=== PATIENT | female | born 1975 | race Caucasian/White ===

== ENCOUNTER → 2016-11-16 | Outpatient (CLI) | payer OTHER ==
--- NOTE | 2016-11-16 14:02 | XR ---
EXAMINATION TYPE: XR spine complete AP and Lat DATE OF EXAM: 11/16/2016 1:53 PM COMPARISON: MRI entire spine July 14, 2015 HISTORY: Neck and back pain TECHNIQUE: Frontal and lateral views of the cervical, thoracic, and lumbar spine are acquired. Additi onal swimmer's view cervical thoracic junction and open mouth view C1-C2 articulation are acquired. FINDINGS: Some loss of normal cervical curvature is present. There is moderate disc space narrowing a nd spurring at C6-C7 level redemonstrated. Prevertebral soft tissue appears within normal limits. C1- C2 articulation is within normal limits on the open mouth view. No acute fracture or dislocation is n oted. Thoracic spine shows satisfactory alignment without evidence of acute fracture or dislocation. Verteb ral body heights and disc space heights are maintained. Visualized ribs are intact. There is asymmetric prominence of left T12 rib versus right T12 rib. 5 lumbar type vertebra identifie d. Lumbar spine shows satisfactory alignment without acute fracture or dislocation. Vertebral body he ights and disc space heights are maintained. Overlying soft tissue shows mildly prominent gas-filled stomach. IMPRESSION: Some loss of normal cervical curvature on current study with moderate degenerative change C6-C7 level redemonstrated, this correlates with level of disc herniation on prior MRI. Thoracic and lumbar spine are grossly felt to remain within normal limits.
== END | disposition home or self-care (01) ==
LOC: RADXRMAIN 13:34
PROVIDERS: ATTEND Internal Medicine
DX: M47.812 Spondylosis without myelopathy or radiculopathy, cervical region (principal)
CPT/HCPCS: 72082

== ENCOUNTER 2016-11-29 20:07 | Emergency (ER) | payer OTHER ==
[2016-11-29 21:08] VITALS: RESP 20
[2016-11-29] MEDS: LORazepam 1 MG TAB PO STA ×2 (21:16→21:24)
--- NOTE | 2016-11-29 21:36 | ED ---
General Adult HPI - General Chief complaint: Shortness of Breath Stated complaint: ALIYA Time Seen by Provider: 11/29/16 20:40 Source: patient, RN notes reviewed Mode of arrival: ambulatory Limitations: no limitations - History of Present Illness Initial comments: This is a 41-year-old female presents to the emergency department complaining of shortness of breath per patient states it started about 1:00 when she was at work. Patient is a hairdresser at work and there is no new chemicals that she was using today. Patient states became short of breath and is continued to be short of breath the last 7 hours. Patient denies any chest pain patient denies any fever chills or cough. Patient states she has asthma and she tried an inhaler earlier and it didn't help very much at all. Patient denies any abdominal pain patient denies nausea vomiting or diarrhea. Patient denies any back pain. Patient denies any headache patient denies numbness weakness. - Related Data Home Medications Medication Instructions Recorded Confirmed Omeprazole [PriLOSEC] 20 mg PO DAILY 08/03/15 11/29/16 metFORMIN HCL [Glucophage] 500 mg PO BID 08/03/15 11/29/16 Albuterol Inhaler [Ventolin Hfa 2 puff INHALATION RT-QID PRN 11/29/16 11/29/16 Inhaler] Lisinopril [Zestril] 2.5 mg PO DAILY 11/29/16 11/29/16 Allergies Allergy/AdvReac Type Severity Reaction Status Date / Time clindamycin Allergy Rash/Hives Verified 11/29/16 20:48 Penicillins Allergy Unknown Verified 11/29/16 20:48 Review of Systems ROS Statement: Those systems with pertinent positive or pertinent negative responses have been documented in the HPI. ROS Other: All systems not noted in ROS Statement are negative. Past Medical History Past Medical History: Chest Pain / Angina, Diabetes Mellitus, Hypertension History of Any Multi-Drug Resistant Organisms: None Reported Past Surgical History: No Surgical Hx Reported Past Psychological History: Anxiety Smoking Status: Current every day smoker Past Alcohol Use History: Occasional Past Drug Use History: None Reported General Exam - General Exam Comments Initial Comments: GENERAL: Patient is well-developed and well-nourished. Patient is nontoxic and well- hydrated and is in no acute distress. ENT: Neck is soft and supple. No significant lymphadenopathy is noted. Oropharynx is clear. Moist mucous membranes. Neck has full range of motion without eliciting any pain. EYES: The sclera were anicteric and conjunctiva were pink and moist. Extraocular movements were intact and pupils were equal round and reactive to light. Eyelids were unremarkable. PULMONARY: Unlabored respirations. Good breath sounds bilaterally. No audible rales rhonchi or wheezing was noted. CARDIOVASCULAR: There is a regular rate and rhythm without any murmurs gallops or rubs. Patient 's heart rate is at 80 beats a minute ABDOMEN: Soft and nontender with normal bowel sounds. No palpable organomegaly was noted. There is no palpable pulsatile mass. SKIN: Skin is clear with no lesions or rashes and otherwise unremarkable. NEUROLOGIC: Patient is alert and oriented x3. Cranial nerves II through XII are grossly intact. Motor and sensory are also intact. Normal speech, volume and content. Symmetrical smile. MUSCULOSKELETAL: Normal extremities with adequate strength and full range of motion. No lower extremity swelling or edema. No calf tenderness. LYMPHATICS: No significant lymphadenopathy is noted PSYCHIATRIC: Normal psychiatric evaluation. Normal interpersonal interactions appears functionally intact in deals appropriately with others. No signs of depression. Patient appears mildly anxious. Limitations: no limitations Course Vital Signs 11/29/16 11/29/16 11/29/16 20:40 20:50 22:03 Temperature 97.1 F L 97.1 F L 98.1 F Pulse Rate 74 76 59 L Respiratory 18 20 20 Rate Blood Pressure 142/87 133/83 O2 Sat by Pulse 100 100 99 Oximetry Medical Decision Making - Medical Decision Making EKG shows sinus bradycardia 57 bpm MS interval 142 QRS is 74 QT interval 414 QTC is 402 per patient's EKG shows no ST segment elevation or depression or T- wave abdomen is noted. Chest x-ray showed no acute normalities. D-dimer was in the normal range. I went back and reevaluate the patient patient stated all of her symptoms have resolved. - Lab Data Lab Results 11/29/16 Range/Units 21:03 D-Dimer 0.47 (<0.60) mg/L FEU Disposition Clinical Impression: Anxiety Disposition: HOME SELF-CARE Condition: Good Instructions: Anxiety (ED) Time of Disposition: 22:23
--- NOTE | 2016-11-29 21:47 | XR ---
EXAMINATION TYPE: XR chest 2V DATE OF EXAM: 11/29/2016 9:27 PM COMPARISON: 03/28/2014 HISTORY: Difficulty breathing and cough TECHNIQUE: Frontal and lateral views of the chest are obtained. FINDINGS: Heart and mediastinum are normal. Lungs are clear. Diaphragm is normal. Bony thorax and so ft tissues appear normal. IMPRESSION: Normal chest. No change.
[2016-11-29 22:05] VITALS: BP 133/83; PULSE 59; TEMP 98.1
[2016-11-29] MEDS ORDERED: ACET/COD 300 MG/30 MG STARTER PACK 6 TAB BTL PO STA (22:26)
[2016-11-29] MEDS ORDERED: Acetaminophen-Codeine 300-30mg TAB PO STA (22:26)
[2016-11-29] MEDS ORDERED: LORazepam 1 MG TAB PO STA (22:26)
== END 2016-11-29 22:41 | disposition home or self-care (01) ==
LOC: EC 20:07
DX: F41.9 Anxiety disorder, unspecified (principal); R06.02 Shortness of breath; E11.9 Type 2 diabetes mellitus without complications; I10 Essential (primary) hypertension; F17.200 Nicotine dependence, unspecified, uncomplicated; Z79.82 Long term (current) use of aspirin; Z79.899 Other long term (current) drug therapy; Z88.0 Allergy status to penicillin; Z88.1 Allergy status to other antibiotic agents
CPT/HCPCS: 36415; 71020; 85379; 93005; 99285

== ENCOUNTER → 2017-02-23 | Outpatient (CLI) | payer OTHER ==
[2017-02-23 11:27] LABS: Basophils # (A) 0.1 k/uL (0-0.2); Basophils % (A) 1 %; CH 32.7; CHCM 34.4; Eosinophils # (A) 0.1 k/uL (0-0.7); Eosinophils % (A) 2 %; HCT 41.9 % (34.0-46.0); HDW 2.84; HGB 14.2 gm/dL (11.4-16.0); Luc # (Auto) 0.11; Luc % (Auto) 2; Lymphocytes # (A) 1.7 k/uL (1.0-4.8); Lymphocytes % (A) 28 %; MCH 32.6 pg (25.0-35.0); MCV 95.7 fL (80.0-100.0); Mean Platelet Volume 6.9; Monocytes # (A) 0.4 k/uL (0-1.0); Monocytes % (A) 7 %; Neutrophils # (A) 3.6 k/uL (1.3-7.7); Neutrophils % (A) 60 %; RBC 4.38 m/uL (3.80-5.40); RDW 12.9 % (11.5-15.5); WBC (Perox) 6.12
[2017-02-23 11:35] LABS: ALT 32 U/L (9-52); AST 20 U/L (14-36); Alkaline Phosphatase 52 U/L (38-126); Anion Gap 13 mmol/L; Blood Urea Nitrogen 9 mg/dL (7-17); Calcium 9.4 mg/dL (8.4-10.2); Carbon Dioxide 23 mmol/L (22-30); Chloride 107 mmol/L (98-107); Cholesterol 148 mg/dL (<200); Glucose 101 mg/dL (74-99); HDL Cholesterol 57 mg/dL (40-60); Non-African American GFR(MDRD) >60 (>60 ml/min/1.73 sqM); Sodium 143 mmol/L (137-145); Total Bilirubin 0.6 mg/dL (0.2-1.3); Total Protein 7.2 g/dL (6.3-8.2); Triglycerides 64 mg/dL (<150)
[2017-02-23 13:26] LABS: Hemoglobin A1C 5.4 % (4.2-6.1)
== END | disposition home or self-care (01) ==
LOC: LABWHC1 10:33
PROVIDERS: ATTEND Family Medicine
DX: E11.65 Type 2 diabetes mellitus with hyperglycemia (principal); I10 Essential (primary) hypertension
CPT/HCPCS: 36415; 80053; 80061; 83036; 84443; 85025

== ENCOUNTER → 2017-04-21 | Outpatient (CLI) | payer OTHER ==
--- NOTE | 2017-04-21 19:04 | MR ---
EXAMINATION TYPE: MR thoracic spine wo con DATE OF EXAM: 04/21/2017 COMPARISON: 07/14/2015 HISTORY: Severe Back Pain x1 year Standard multiplanar, multisequence MRI departmental protocol Multiplanar, multisequence images of the thoracic spine were acquired. Diffusion weighted imaging was performed. FINDINGS: Alignment anatomic. Vertebral body height and disc interspace maintained. Signal maintained . No abnormal signal seen within the visualized spinal cord. Visualized neural foramina maintained. There is no evidence of disc herniation or canal stenosis at any of the visualized levels. Within the cervical spine the lower cervical region is included which demonstrates a central left par acentral disc herniation C6-C7 which results in mass effect and mild compression of anterior margin o f the cervical spinal cord. Disc herniation C5-C6 also suspected but not entirely included. IMPRESSION: 1. Normal MRI thoracic spine. 2. Central disc herniation or protrusion C6-C7 with mass effect upon the spinal cord. Disc herniation C5-C6 also suspected but not entirely included within the [id number].
== END | disposition home or self-care (01) ==
LOC: RADMRIMAIN 17:58
PROVIDERS: ATTEND Family Medicine
DX: M54.6 Pain in thoracic spine (principal)
CPT/HCPCS: 72146

== ENCOUNTER → 2017-04-24 | Outpatient (CLI) | payer OTHER ==
[2017-04-24 11:34] LABS: Blood Urea Nitrogen 12 mg/dL (7-17); Non-African American GFR(MDRD) >60 (>60 ml/min/1.73 sqM)
--- NOTE | 2017-04-24 13:05 | CT ---
EXAMINATION TYPE: CT abdomen pelvis w con DATE OF EXAM: 04/24/2017 HISTORY: Umbilical pain into back per patient. Abdominal pain not further specified per order CT DLP: 602.9mGycm Automated Exposure Control for Dose Reduction was Utilized. CONTRAST: CT scan of the abdomen and pelvis is performed with IV Contrast, patient injected with 100 mL of Omni paque 300. COMPARISON: CT abdomen pelvis August 03, 2015 FINDINGS: LUNG BASES: No significant abnormality is appreciated. LIVER/GB: No significant abnormality is appreciated. PANCREAS: No significant abnormality is seen. SPLEEN: No significant abnormality is seen. ADRENALS: No significant abnormality is seen. KIDNEYS: No significant abnormality is seen. BOWEL: The oral contrast reaches level of the hepatic flexure. There is no suspicious small or large bowel dilatation seen. Normal appearing appendix is seen from cecum. The amount of fecal material is mildly prominent in the transverse and left colon. UTERUS/ADNEXA: Uterus is heterogeneous appearance, anteverted in shape, and within normal limits in s ize. Both ovaries are seen in the adnexa near axial image 71. In left adnexa there is 1.6 cm rim hype rdense lesion felt to reflect corpus luteal cyst from recent lobulation. There is small to moderate a mount of free fluid in pelvic cul-de-sac, nonspecific finding. LYMPH NODES: No greater than 1cm abdominal or pelvic lymph nodes are appreciated. OSSEOUS STRUCTURES: No significant abnormality is seen. OTHER: There is mild to minimal atherosclerotic change within distal abdominal aorta. IMPRESSION: No bowel obstruction is seen. There is perhaps mild colonic fecal stasis. There is small to moderate amount of free fluid in pelvic cul-de-sac, nonspecific finding. Otherwise no suspicious f inding is seen to account for patient's symptoms.
== END | disposition home or self-care (01) ==
LOC: RADCTMAIN 10:55
PROVIDERS: ATTEND Family Medicine
DX: R10.9 Unspecified abdominal pain (principal)
CPT/HCPCS: 82565; 84520; 74177; 36415; Q9967

== ENCOUNTER → 2017-07-19 | Outpatient (CLI) | payer OTHER ==
--- NOTE | 2017-07-19 10:38 | MR ---
EXAMINATION TYPE: MR cspine/lspine wo con DATE OF EXAM: 07/19/2017 COMPARISON: MRI cervical and lumbar spine July 14, 2015 HISTORY: Neck and low back pain per order. Patient complains of headache and neck pain for 2 to 3 yea rs with pain going into both arms and fingers. Patient complains of low back pain for one to 2 years. TECHNIQUE: Multiplanar, multisequence imaging of the cervical and lumbar spine are performed without IV contrast. FINDINGS: C-SPINE: FINDINGS: Sagittal images of the cervical spine show the craniocervical junction to appear within nor mal limits. The cervical and upper thoracic spinal cord is normal in course and signal. Vertebral a lignment is straightened. There is persistent moderate disc space narrowing C6-C7 level. The vertebra l body and intravertebral disk heights otherwise are normal. Posterior disc herniation C5-C6 and C6- C7 level are redemonstrated on sagittal images. There is heterogeneous diminished T1 and increased T2 signal centered at C6-C7 endplate consistent with Modic type I degenerative change. No significant s purring is seen. Axial images show the C2-C3, C3-C4, C4-C5 levels all to remain within normal limits. Axial images at C5-C6 level show broad-based right paracentral disc protrusion effacing anterior thec al sac up to ventral surface of spinal cord on axial image 23, there is mild asymmetric right-sided n eural foraminal narrowing now present. Left-sided neural foramen is patent. Some progression in findi ngs is felt present versus prior study. Axial images at C6-C7 level show broad-based left paracentral disc protrusion effacing anterolateral thecal sac up to ventral surface of spinal cord and causing moderate to severe left and mild right-si ded neural foraminal narrowing. No significant change from prior study is seen. Axial images at C7-T1 level are felt within normal limits. IMPRESSION: Straightening of cervical spine with degenerative changes C5-C6 and C6-C7 level redemonst rated as detailed above. Some progression in findings C5-C6 level noted. L-SPINE: Sagittal images of the lumbar spine show vertebral body heights and alignment to appear satisfactory. The intervertebral discs demonstrate normal heights and hydration. The conus medullaris is normal i n position and signal ending superior L1 level. The bone marrow signal intensity is within normal li mits. Axial images show mild facet degenerative changes L4-L5 and L5-S1 level. No significant change from p rior study. There is no spinal canal stenosis, neural foraminal narrowing, or evidence of nerve root compromise. IMPRESSION: Mild facet arthropathy lower lumbar spine otherwise unremarkable study
== END | disposition home or self-care (01) ==
LOC: RADMRIMAIN 09:02
PROVIDERS: ATTEND Psychiatry & Neurology Pain Medicine
DX: M47.812 Spondylosis without myelopathy or radiculopathy, cervical region (principal); M46.96 Unspecified inflammatory spondylopathy, lumbar region; Z88.0 Allergy status to penicillin
CPT/HCPCS: 72141; 72148

== ENCOUNTER → 2017-09-06 | Outpatient (CLI) | payer OTHER ==
[2017-09-06 11:57] LABS: ALT 26 U/L (9-52); AST 19 U/L (14-36); Alkaline Phosphatase 51 U/L (38-126); Anion Gap 9 mmol/L; Blood Urea Nitrogen 9 mg/dL (7-17); Calcium 9.8 mg/dL (8.4-10.2); Carbon Dioxide 24 mmol/L (22-30); Chloride 108 mmol/L (98-107); Cholesterol 179 mg/dL (<200); Glucose 97 mg/dL (74-99); HDL Cholesterol 48 mg/dL (40-60); Non-African American GFR(MDRD) >60 (>60 ml/min/1.73 sqM); Potassium 4.3 mmol/L (3.5-5.1); Sodium 141 mmol/L (137-145); Total Bilirubin 0.4 mg/dL (0.2-1.3); Total Protein 7.7 g/dL (6.3-8.2)
== END | disposition home or self-care (01) ==
LOC: LABWHC1 10:40
PROVIDERS: ATTEND Family Medicine
DX: E11.65 Type 2 diabetes mellitus with hyperglycemia (principal)
CPT/HCPCS: 36415; 80053; 80061; 83036

== ENCOUNTER → 2018-03-14 | Outpatient (CLI) | payer OTHER ==
[2018-03-14 10:11] LABS: Basophils % (A) 0 %; Eosinophils # (A) 0.2 k/uL (0-0.7); Eosinophils % (A) 2 %; HCT 41.3 % (34.0-46.0); HGB 14.5 gm/dL (11.4-16.0); Lymphocytes # (A) 1.9 k/uL (1.0-4.8); Lymphocytes % (A) 30 %; MCH 32.5 pg (25.0-35.0); MCHC 35.1 g/dL (31.0-37.0); MCV 92.5 fL (80.0-100.0); Mean Platelet Volume 6.9; Monocytes # (A) 0.5 k/uL (0-1.0); Monocytes % (A) 7 %; Neutrophils # (A) 3.7 k/uL (1.3-7.7); Neutrophils % (A) 58 %; Platelet Count 265 k/uL (150-450); RBC 4.47 m/uL (3.80-5.40); RDW 12.8 % (11.5-15.5); WBC 6.3 k/uL (3.8-10.6)
[2018-03-14 10:38] LABS: ALT 30 U/L (9-52); AST 19 U/L (14-36); Albumin 4.7 g/dL (3.5-5.0); Alkaline Phosphatase 64 U/L (38-126); Anion Gap 16 mmol/L; Blood Urea Nitrogen 11 mg/dL (7-17); Calcium 9.4 mg/dL (8.4-10.2); Carbon Dioxide 23 mmol/L (22-30); Chloride 104 mmol/L (98-107); Cholesterol 192 mg/dL (<200); Glucose 174 mg/dL (74-99); HDL Cholesterol 50 mg/dL (40-60); LDL Cholesterol,Calculated 124 mg/dL (0-99); Potassium 4.1 mmol/L (3.5-5.1); Sodium 143 mmol/L (137-145); Total Bilirubin 0.6 mg/dL (0.2-1.3); Total Protein 7.4 g/dL (6.3-8.2); Triglycerides 88 mg/dL (<150)
[2018-03-14 17:34] LABS: Hemoglobin A1C 6.8 % (4.0-6.0)
== END | disposition home or self-care (01) ==
LOC: LABWHC1 09:23
PROVIDERS: ATTEND Family Medicine
DX: E11.65 Type 2 diabetes mellitus with hyperglycemia (principal); E78.2 Mixed hyperlipidemia
CPT/HCPCS: 36415; 80053; 80061; 82306; 83036; 84443; 85025

== ENCOUNTER → 2018-05-14 | Outpatient (CLI) | payer OTHER ==
--- NOTE | 2018-05-14 10:28 | MR ---
MRI CERVICAL SPINE: CLINICAL HISTORY: Cervicalgia per order. Headache with neck pain for 2 to 3 years causing pain or wea kness into both arms and fingers per patient. TECHNIQUE: Multiplanar, multisequence imaging of the cervical spine is performed without IV contrast. COMPARISON: MRI cervical spine July 19, 2017. FINDINGS: Sagittal images of the cervical spine show the craniocervical junction to remain within nor mal limits. The cervical and upper thoracic spinal cord is normal in course, caliber, and signal. Th ere is persistent grade 1 retrolisthesis of C5 on C6 and C6 on C7 with straightening of cervical spin e. The vertebral body and heights remain normal. Moderate to advanced disc space narrowing C6-C7 lev el with heterogeneous Modic type I degenerative change is redemonstrated. Posterior disc herniation C 5-C6 and C6-C7 level are more prominent versus most recent MRI. Axial images show the C2-C3, C3-C4, and C4-C5 levels all to remain within normal limits. Axial images at C5-C6 level show more prominent broad-based left paracentral disc protrusion on curre nt study effacing anterolateral thecal sac up to ventral surface of spinal cord which is flattened on image 20, there is stable mild right-sided neural foraminal narrowing due to uncovertebral facet art hropathy. Left-sided neural foramen is patent. Axial images at C6-C7 level show broad-based left paracentral disc protrusion effacing anterolateral thecal sac up to ventral surface of spinal cord and causing moderate to severe left and mild to moder ate right-sided neural foraminal narrowing. No significant change from prior. Axial images at C7-T1 level are felt to remain within normal limits. IMPRESSION: Loss of normal cervical curvature with fairly advanced degenerative changes C5-C6 and C6- C7 level redemonstrated. Progression in findings from most recent MRI C5-C6 level noted. Advise neuro surgical consultation due to fairly prominent spinal canal effacement and/or stenosis increasing in s everity.
== END | disposition home or self-care (01) ==
LOC: RADMRIMAIN 09:03
PROVIDERS: ATTEND Psychiatry & Neurology Pain Medicine
DX: M43.8X2 Other specified deforming dorsopathies, cervical region (principal); M47.812 Spondylosis without myelopathy or radiculopathy, cervical region; Z88.0 Allergy status to penicillin
CPT/HCPCS: 72141

== ENCOUNTER → 2018-08-27 | Outpatient (CLI) | payer OTHER ==
--- NOTE | 2018-08-27 09:24 | CT ---
EXAMINATION TYPE: CT cervical spine wo con DATE OF EXAM: 08/27/2018 COMPARISON: None HISTORY: pre surgical/neck pain arm numbness x [address] DLP: [address] of the cervical spine was performed with bone and soft tissue window settings submitted . Coronal and sagittal reconstruction is obtained. C2-3: Within normal limits. C3-4: Within normal limits C4-5: Within normal limits C5-6: Moderate degenerative disc disease. Circumferential disc bulge with mild effacement ventral the osmel sac. No evidence for disc herniation or central stenosis. Foramina are patent bilaterally. C6-7: Severe degenerative disc space narrowing of ventral and dorsal spondylosis. Disc bulging with p artial encapsulating spur resulting in disc endplate complex. This does result in effacement of the v entral thecal sac without central stenosis. Bilateral foraminal encroachment left greater than right. Degenerative change of the cervical apophyseal joints. C7-T1: Within normal limits There is normal alignment. No fracture or subluxation identified. IMPRESSION: 1. Degenerative disc disease greatest at C5-6 and C6-7. Associated disc bulging and foraminal encroac hment. See above.
== END | disposition home or self-care (01) ==
LOC: RADCTMAIN 08:25
PROVIDERS: ATTEND Orthopaedic Surgery
DX: M48.02 Spinal stenosis, cervical region (principal); M50.022 Cervical disc disorder at C5-C6 level with myelopathy; M47.12 Other spondylosis with myelopathy, cervical region
CPT/HCPCS: 72125

== ENCOUNTER → 2018-11-21 | Outpatient (CLI) | payer OTHER ==
[2018-11-21 11:08] LABS: Basophils # (A) 0.1 k/uL (0-0.2); Basophils % (A) 1 %; Eosinophils # (A) 0.2 k/uL (0-0.7); Eosinophils % (A) 3 %; HGB 14.7 gm/dL (11.4-16.0); Lymphocytes # (A) 2.1 k/uL (1.0-4.8); Lymphocytes % (A) 29 %; MCH 31.8 pg (25.0-35.0); MCHC 33.4 g/dL (31.0-37.0); Mean Platelet Volume 6.5; Monocytes # (A) 0.5 k/uL (0-1.0); Monocytes % (A) 6 %; Neutrophils # (A) 4.4 k/uL (1.3-7.7); Neutrophils % (A) 60 %; Platelet Count 229 k/uL (150-450); RBC 4.64 m/uL (3.80-5.40); RDW 13.2 % (11.5-15.5); WBC 7.4 k/uL (3.8-10.6)
[2018-11-21 15:55] LABS: Vitamin D 25 Hydroxy 16.8 ng/mL (30.0-100.0)
[2018-11-21 16:02] LABS: Folate, Serum 18.2 ng/mL
[2018-11-21 16:09] LABS: LDL Cholesterol,Calculated 123.6 mg/dL (0.0-131.0); Magnesium 1.6 mg/dL (1.5-2.4); VLDL Calculation 21.4 mg/dL (5.00-40.00)
[2018-11-21 16:10] LABS: Albumin 4.7 g/dL (3.80-4.90); Albumin/Globulin Ratio 2.04 (1.60-3.17); Anion Gap 10.1 mmol/L (4.00-12.00); Calcium 9.4 mg/dL (8.7-10.3); Carbon Dioxide 21.9 mmol/L (21.6-31.8); Globulin 2.3 g/dL (1.6-3.3); Potassium 4.3 mmol/L (3.5-5.5); Total Bilirubin 0.4 mg/dL (0.3-1.2)
== END ==
LOC: LABWHC1 10:03
PROVIDERS: ATTEND Family Medicine
DX: E11.65 Type 2 diabetes mellitus with hyperglycemia (principal); E78.2 Mixed hyperlipidemia; I10 Essential (primary) hypertension
CPT/HCPCS: 36415; 80053; 80061; 82306; 82607; 82746; 83735; 84443; 85025

== ENCOUNTER → 2019-05-01 | Outpatient (CLI) | payer OTHER ==
[2019-05-01 12:02] LABS: Basophils # (A) 0.1 k/uL (0-0.2); Basophils % (A) 1 %; Eosinophils # (A) 0.2 k/uL (0-0.7); Eosinophils % (A) 3 %; HCT 42.4 % (34.0-46.0); HGB 14.3 gm/dL (11.4-16.0); Lymphocytes # (A) 1.7 k/uL (1.0-4.8); Lymphocytes % (A) 28 %; MCH 31.6 pg (25.0-35.0); MCHC 33.8 g/dL (31.0-37.0); MCV 93.3 fL (80.0-100.0); Monocytes # (A) 0.4 k/uL (0-1.0); Monocytes % (A) 6 %; Neutrophils # (A) 3.8 k/uL (1.3-7.7); Neutrophils % (A) 61 %; Platelet Count 247 k/uL (150-450); RBC 4.54 m/uL (3.80-5.40); RDW 13.1 % (11.5-15.5); WBC 6.2 k/uL (3.8-10.6)
[2019-05-01 13:36] LABS: Erythrocyte Sedimentation Rate 4 mm/hr (0-20)
[2019-05-01 18:06] LABS: ALT 22 U/L (8-44); AST 20 U/L (13-35); African American GFR (CKD) 78.2 (60.0-200.0); C Reactive Protein <0.4 mg/dL (0.0-0.8); Calcium 9.4 mg/dL (8.7-10.3); Carbon Dioxide 24.1 mmol/L (21.6-31.8); Chloride 106 mmol/L (96-109); Creatine Kinase 303 U/L (26-186); Glucose 163 mg/dL (70-110); Potassium 4.4 mmol/L (3.5-5.5); Sodium 139 mmol/L (135-145)
[2019-05-01 18:15] LABS: Rheumatoid Factor 8 IU/mL (0-15)
[2019-05-01 20:10] LABS: Cyclic Citrull Pep IgG Unit <0.5 U/mL; Cyclic Citrullinated Pep IgG NEGATIVE (NEGATIVE)
[2019-05-02 11:28] LABS: Angiotensin-1 Converting Enz. 20 U/L (8-52)
[2019-05-02 11:57] LABS: ANA Pattern Homogeneous
[2019-05-02 12:07] LABS: HLA B27 NEGATIVE
== END | disposition home or self-care (01) ==
LOC: LABWHC1 11:22
DX: M13.0 Polyarthritis, unspecified (principal)
CPT/HCPCS: 36415; 80048; 82164; 82306; 82550; 84439; 84443; 84450; 84460; 84550; 85025; 85652; 86038; 86039; 86140; 86200; 86431; 86812

== ENCOUNTER → 2019-05-15 | Outpatient (CLI) | payer OTHER ==
[2019-05-15 10:10] LABS: Appearance,Urine Clear (Clear); Bilirubin,Urine Negative (Negative); Blood,Urine Small (Negative); Color,Urine Yellow; Glucose,Urine (UA) 4+ (Negative); Ketones,Urine Negative (Negative); Leukocyte Esterase,Urine Negative (Negative); Mucus,Urine Rare /hpf; Nitrite,Urine Negative (Negative); PH, Urine 5.5 (5.0-8.0); Protein,Urine Negative (Negative); RBC,Urine 1 /hpf (0-5); Specific Gravity,Urine 1.019 (1.001-1.035); Squamous Epithelial Cell,Urine 2 /hpf (0-4); Urobilinogen,Urine <2.0 mg/dL (<2.0); WBC,Urine 2 /hpf (0-5)
[2019-05-15 18:12] LABS: Protein, Total 6.7 g/dL (6.2-8.2)
[2019-05-15 18:34] LABS: Hepatitis C IgG Antibody Non-Reactive (Non-Reactive)
[2019-05-15 21:09] LABS: Anti-Smith Ab Interp NEGATIVE (NEGATIVE); Cardiolipin Ab IgM Interp NEGATIVE (NEGATIVE); Cardiolipin IgM Antibody 0.2 U/mL; DNA Double-Stranded POSITIVE (NEGATIVE)
[2019-05-15 21:10] LABS: Cardiolipin Ab IgG Interp NEGATIVE (NEGATIVE); Centromere Antibody Interp NEGATIVE (NEGATIVE); Scleroderma SC-70 Ab 0.4 AI
[2019-05-16 12:08] LABS: Aldolase 4.7 U/L (1.2-7.6)
[2019-05-16 12:33] LABS: Albumin 4.23 g/dL (3.80-4.90)
[2019-05-16 12:37] LABS: ANA Pattern Homogeneous
[2019-05-16 13:17] LABS: APTT 35 Sec(s) (<43); Dilute Russell Viper Venom 35 Sec(s) (<44)
[2019-05-16 15:05] LABS: C-ANCA <1:20 Titer (<1:20)
[2019-05-17 11:36] LABS: Histone Antibody 0.5 UNITS (<1.0)
== END | disposition home or self-care (01) ==
LOC: LABWHC1 09:23
PROVIDERS: ATTEND Internal Medicine Rheumatology
DX: R76.8 Other specified abnormal immunological findings in serum (principal)
CPT/HCPCS: 36415; 81001; 82085; 83516; 83883; 84165; 85613; 85730; 86038; 86039; 86147; 86160; 86162; 86225; 86235; 86255; 86334; 86803; 87340

== ENCOUNTER → 2020-06-02 | Outpatient (CLI) | payer OTHER ==
[2020-06-02 10:46] LABS: Basophils # (A) 0.1 k/uL (0-0.2); Basophils % (A) 2 %; Eosinophils # (A) 0.2 k/uL (0-0.7); Eosinophils % (A) 2 %; HGB 14.1 gm/dL (11.4-16.0); Lymphocytes % (A) 29 %; MCH 30.9 pg (25.0-35.0); MCHC 32.7 g/dL (31.0-37.0); MCV 94.7 fL (80.0-100.0); Mean Platelet Volume 7.9; Monocytes # (A) 0.4 k/uL (0-1.0); Monocytes % (A) 5 %; Neutrophils # (A) 4.3 k/uL (1.3-7.7); Neutrophils % (A) 61 %; Platelet Count 255 k/uL (150-450); RBC 4.54 m/uL (3.80-5.40); RDW 12.6 % (11.5-15.5); WBC 7.1 k/uL (3.8-10.6)
[2020-06-02 18:53] LABS: African American GFR (CKD) 101.8 (60.0-200.0); Albumin 4.7 g/dL (3.80-4.90); Albumin/Globulin Ratio 1.96 (1.60-3.17); Anion Gap 10.9 mmol/L (4.00-12.00); BUN/Creat Ratio 23.75 Ratio (12.00-20.00); Calcium 9.4 mg/dL (8.7-10.3); Carbon Dioxide 20.1 mmol/L (21.6-31.8); Chol/HDL Ratio 4.04; Globulin 2.4 g/dL (1.6-3.3); LDL Cholesterol,Calculated 121.8 mg/dL (0.0-131.0); Non-African American GFR(CKD) 87.8 (60.0-200.0); Potassium 4.2 mmol/L (3.5-5.5); Total Bilirubin 0.4 mg/dL (0.2-1.2); Total Protein 7.1 g/dL (6.2-8.2); Uric Acid 3.1 mg/dL (2.9-7.7); VLDL Calculation 21.2 mg/dL (5.00-40.00)
== END | disposition home or self-care (01) ==
LOC: LABWHC1 09:17
PROVIDERS: ATTEND Family Medicine
DX: E11.65 Type 2 diabetes mellitus with hyperglycemia (principal); I10 Essential (primary) hypertension; E78.2 Mixed hyperlipidemia
CPT/HCPCS: 36415; 80053; 80061; 82306; 84443; 84550; 85025

== ENCOUNTER → 2021-03-24 | Outpatient (CLI) | payer OTHER ==
[2021-03-24 12:04] LABS: Basophils # (A) 0.08 X 10*3/uL (0.00-0.10); Basophils % (A) 1.1 %; Eosinophils # (A) 0.38 X 10*3/uL (0.04-0.35); Eosinophils % (A) 5.1 %; HCT 42.7 % (37.2-46.3); HGB 14.3 g/dL (12.0-15.0); Lymphocytes # (A) 2.79 X 10*3/uL (0.90-5.00); Lymphocytes % (A) 37.8 %; MCH 31.7 pg (27.0-32.0); MCHC 33.5 g/dL (32.0-37.0); MCV 94.7 fL (80.0-97.0); Mean Platelet Volume 10.1 fL (9.5-12.2); Monocytes # (A) 0.65 X 10*3/uL (0.20-1.00); Monocytes % (A) 8.8 %; Neutrophils # (A) 3.47 X 10*3/uL (1.80-7.70); Neutrophils % (A) 46.9 %; Platelet Count 250 X 10*3/uL (140-440); RBC 4.51 X 10*6/uL (4.10-5.20); RDW 12.6 % (11.5-14.5); WBC 7.39 X 10*3/uL (4.50-10.00)
[2021-03-24 16:09] LABS: African American GFR (CKD) 88.2 (60.0-200.0); Albumin 4.6 g/dL (3.80-4.90); Albumin/Globulin Ratio 1.77 (1.60-3.17); Anion Gap 9.1 mmol/L (4.00-12.00); BUN/Creat Ratio 14.44 Ratio (12.00-20.00); Calcium 9.2 mg/dL (8.7-10.3); Carbon Dioxide 22.9 mmol/L (21.6-31.8); Globulin 2.6 g/dL (1.6-3.3); LDL Cholesterol,Calculated 125.6 mg/dL (0.0-131.0); Non-African American GFR(CKD) 76.1 (60.0-200.0); Potassium 3.9 mmol/L (3.5-5.5); Total Bilirubin 0.5 mg/dL (0.2-1.2); Total Protein 7.2 g/dL (6.2-8.2); Uric Acid 3.6 mg/dL (2.9-7.7); VLDL Calculation 24.4 mg/dL (5.00-40.00)
== END | disposition home or self-care (01) ==
LOC: LABWHC1 08:23
PROVIDERS: ATTEND Family Medicine
DX: I10 Essential (primary) hypertension (principal)
CPT/HCPCS: 36415; 80053; 80061; 82306; 84443; 84550; 85025

== ENCOUNTER → 2022-09-13 | Outpatient (CLI) | payer OTHER ==
[2022-09-13 15:24] LABS: Basophils # (A) 0.09 X 10*3/uL (0.00-0.10); Basophils % (A) 1.4 %; HCT 41.4 % (37.2-46.3); HGB 13.7 g/dL (12.0-15.0); Immature Grans, Automated 0.3 %; Lymphocytes # (A) 1.74 X 10*3/uL (0.90-5.00); Lymphocytes % (A) 26.4 %; MCH 32.6 pg (27.0-32.0); MCHC 33.1 g/dL (32.0-37.0); MCV 98.6 fL (80.0-97.0); Mean Platelet Volume 10.8 fL (9.5-12.2); Monocytes # (A) 0.63 X 10*3/uL (0.20-1.00); Monocytes % (A) 9.5 %; NRBC Per 100 WBC 0 /100 WBCS (0.0-0.0); Neutrophils # (A) 3.92 X 10*3/uL (1.80-7.70); Neutrophils % (A) 59.4 %; Platelet Count 235 X 10*3/uL (140-440); RDW 12.7 % (11.5-14.5)
[2022-09-13 18:16] LABS: Chol/HDL Ratio 2.42 Ratio; Uric Acid 3.8 mg/dL (2.9-7.7); VLDL Calculation 19.14 mg/dL (5.00-40.00)
[2022-09-13 18:23] LABS: ALT 16 U/L (8-44); AST 20 U/L (13-35); African American GFR (CKD) 102.7 (60.0-200.0); Albumin 4.8 g/dL (3.8-4.9); Albumin/Globulin Ratio 2.02 (1.60-3.17); Alkaline Phosphatase 61 U/L (41-126); BUN/Creat Ratio 16.18 Ratio (12.00-20.00); Blood Urea Nitrogen 12.7 mg/dL (9.0-27.0); Calcium 9.6 mg/dL (8.7-10.3); Carbon Dioxide 23.1 mmol/L (20.0-27.5); Chloride 105 mmol/L (96-109); Globulin 2.4 g/dL (1.6-3.3); Glucose 127 mg/dL (70-110); Non-African American GFR(CKD) 88.6 (60.0-200.0); Potassium 4.5 mmol/L (3.5-5.5); Sodium 143 mmol/L (135-145); Total Protein 7.2 g/dL (6.2-8.2)
[2022-09-13 22:36] LABS: Rheumatoid Factor, Qnt <10 IU/mL (0-15)
== END | disposition home or self-care (01) ==
LOC: LABWHC1 08:07
PROVIDERS: ATTEND Family Medicine
DX: Z12.11 Encounter for screening for malignant neoplasm of colon (principal); Z71.3 Dietary counseling and surveillance; E78.2 Mixed hyperlipidemia; I10 Essential (primary) hypertension; R76.8 Other specified abnormal immunological findings in serum; E11.65 Type 2 diabetes mellitus with hyperglycemia; Z71.82 Exercise counseling; G89.29 Other chronic pain; M25.562 Pain in left knee; M25.561 Pain in right knee; M54.50 Low back pain, unspecified; R21 Rash and other nonspecific skin eruption
CPT/HCPCS: 36415; 80053; 80061; 82306; 82607; 82746; 84443; 84550; 85025; 86038; 86039; 86431

== ENCOUNTER → 2023-02-07 | Outpatient (CLI) | payer OTHER ==
[2023-02-07 10:49] LABS: Basophils # (A) 0.08 X 10*3/uL (0.00-0.10); Basophils % (A) 1.2 %; Eosinophils # (A) 0.17 X 10*3/uL (0.04-0.35); Eosinophils % (A) 2.5 %; HCT 40.1 % (37.2-46.3); HGB 13.4 g/dL (12.0-15.0); Immature Grans, Automated 0.3 %; Lymphocytes # (A) 2.52 X 10*3/uL (0.90-5.00); Lymphocytes % (A) 36.6 %; MCH 31.2 pg (27.0-32.0); MCHC 33.4 g/dL (32.0-37.0); MCV 93.5 fL (80.0-97.0); Mean Platelet Volume 9.8 fL (9.5-12.2); Monocytes # (A) 0.55 X 10*3/uL (0.20-1.00); NRBC Per 100 WBC 0 /100 WBCS (0.0-0.0); Neutrophils # (A) 3.55 X 10*3/uL (1.80-7.70); Neutrophils % (A) 51.4 %; Platelet Count 244 X 10*3/uL (140-440); RBC 4.29 X 10*6/uL (4.10-5.20); RDW 11.9 % (11.5-14.5); WBC 6.89 X 10*3/uL (4.50-10.00)
[2023-02-07 11:18] LABS: Rheumatoid Factor, Qnt <10 IU/mL (0-15)
[2023-02-07 12:01] LABS: ALT 15 U/L (8-44); AST 14 U/L (13-35); African American GFR (CKD) 105.1 (60.0-200.0); Albumin 4.5 g/dL (3.8-4.9); Albumin/Globulin Ratio 1.97 (1.60-3.17); Alkaline Phosphatase 56 U/L (41-126); BUN/Creat Ratio 16.88 Ratio (12.00-20.00); Calcium 9.3 mg/dL (8.7-10.3); Carbon Dioxide 22.8 mmol/L (20.0-27.5); Chloride 106 mmol/L (96-109); Chol/HDL Ratio 2.76 Ratio; Globulin 2.3 g/dL (1.6-3.3); Glucose 175 mg/dL (70-110); LDL Cholesterol,Calculated 86.8 mg/dL (0.0-131.0); Non-African American GFR(CKD) 90.7 (60.0-200.0); Sodium 141 mmol/L (135-145); Total Protein 6.8 g/dL (6.2-8.2); Uric Acid 3.1 mg/dL (2.9-7.7); VLDL Calculation 17.68 mg/dL (5.00-40.00)
== END | disposition home or self-care (01) ==
LOC: LABWHC1 07:22
PROVIDERS: ATTEND Family Medicine
DX: I10 Essential (primary) hypertension (principal); E11.65 Type 2 diabetes mellitus with hyperglycemia; E78.2 Mixed hyperlipidemia; M50.90 Cervical disc disorder, unspecified, unspecified cervical region; M51.9 Unspecified thoracic, thoracolumbar and lumbosacral intervertebral disc disorder; R76.8 Other specified abnormal immunological findings in serum
CPT/HCPCS: 36415; 80053; 80061; 82306; 82607; 82746; 84443; 84550; 85025; 86038; 86039; 86431

== ENCOUNTER → 2023-03-02 | Outpatient (CLI) | payer OTHER ==
--- NOTE | 2023-03-02 14:30 | XR ---
EXAMINATION TYPE: XR cervical spine limited DATE OF EXAM: 03/02/2023 11:26 AM INDICATION: Patient age:Female; 47 years old; Reason for study: M50.30 OTHER CERVICAL DISC DEGENERATION, UNSP CERV COMPARISON: CT cervical spine 08/27/2018 TECHNIQUE: The cervical spine was imaged in frontal, lateral, and odontoid. FINDINGS: The osseous structures show normal alignment without evidence of an acute fracture. There are osteoph ytes noted throughout the cervical spine on the anterior and lateral aspects of the vertebral bodies. The intervertebral disk spaces are narrowed at multiple levels Pedicles are intact. Soft tissues ar e within normal limits. The odontoid appears intact. IMPRESSION: 1. No fracture or dislocation. 2. Mild degenerative disc disease changes of the cervical spine which is mildly progressed from 2018 CT.
== END | disposition home or self-care (01) ==
LOC: RADXRMAIN 11:04
PROVIDERS: ATTEND Physician Assistant Medical
DX: M50.30 Other cervical disc degeneration, unspecified cervical region (principal)
CPT/HCPCS: 72040

== ENCOUNTER → 2023-03-02 | Outpatient (CLI) | payer OTHER ==
[2023-03-02 11:37] VITALS: BP 149/93; PULSE 70; RESP 18; TEMP 98
--- NOTE | 2023-03-02 14:52 | P.PAINPG ---
PQRS Measure Charge Sheet Comment: HISTORY OF PRESENT ILLNESS: 47 yr old female as a referral from Dr Bajwa presents today w severe and chronic neck pain secondary to DDD, spondylosis and facet arthropathy without myelopathy for evaluation. Pt states pain level is provoked at 6/10 in intensity, constant, localized in the lower cervical spine, achy, dull in character w shooting pain towards the BL shoulders. Pain is provoked by rotation and UE lifting. Pain is alleviated by massage therapy monthly, heat, medications (Ibu), repositioning and rest. PMH: Angina, DM II, HTN, Anxiety PSH: Denies SH: Daily tobacco use, Occasional ETOH use, No illicit drug use FH: Non contributory All: See list Meds: See list REVIEW OF ORGAN SYSTEMS: CONSTITUTIONAL: No fevers or chills. No recent weight loss. NEUROLOGICAL: + numbness and tingling along the distal extremities. No seizure disorders or headaches. MUSCULOSKELETAL: + pain PSYCHIATRIC: Denies current depression or suicidal thoughts. Physical Examinations : Constitutional : Cooperative , not in acute distress . Neurologic : Cranial nerve II to XII intact. No focal neurological deficits. Psychiatric : alert & oriented x 3. Matching mood & appropriate affect. Judgment & insight intact. Musculoskeletal : Cervical Spine Motor strength in the deltoid and biceps: Normal right side. Normal Left side Motor strength biceps and the wrist extensors: Normal right side . Normal left side Motor strength in the triceps muscle: Normal right side. Normal left side Deep tendon reflexes: Normal at the biceps. Normal at Brachioradialis. Normal at triceps Vertebral body tenderness to deep palpation over C6 Cervical facet loading test: positive bilaterally Spurling test: positive bilaterally Neck distraction test: positive bilaterally Nani sign: positive bilaterally Lumbar spine Motor strength lower extremities ,thigh and legs 5/5 Right side , 5/5 Left side Deep tendon reflexes : Normal Knee Jerk. Normal Ankle Jerk Vertebral body tenderness over Rodriguez Test positive Lumbar facet Loading Test: positive Right / positive Left Range of motion of the lumbar spine Flexion 30 degrees, extension 10 degrees Straight Leg Raise test: Left/ Right positive at degree Harpreet test: positive right / positive left. Severe tenderness over the Sacroiliac joint on the Right / Left sides Gaenslen test: positive bilaterally Seated flexion test: positive bilaterally. Sacral spine : Severe tenderness over the Sacroiliac joint: right side / left side Range of motion: Flexion of the lumbar spine <60 degrees Range of motion: Extension of the lumbar spine <20 degrees Gaenslen's Test positive Hosea's Test positive Harpreet test: positive right side / left side Thigh Thrust Test Sacral Thrust Test Imaging: CT noncontrast of the cervical spine from08/27/18 reviewed Assessment/ Plan : Cervical spondylosis Recommendation of x ray of the cervical spine. May need additional testing if indicated. May return to clinic for a re evaluation within 2-4 wks/ All questions answered. I have spent greater than 30 minutes on patient care today. Dr Silverman was available by phone for the evaluation of this patient. The time was used to review the medical records including relevant urine studies and Prescription history (MAPs), review of the available imaging, evaluation and examination of the patient, coordination of care with the medical staff and if applicable referring physicians, as well as creation of the medical record PQRS Narrative: Smoking Status Current every day smoker Home Medications: Ambulatory Orders Omeprazole [PriLOSEC] 20 mg PO DAILY 08/03/15 metFORMIN HCL [Glucophage] 500 mg PO BID 08/03/15 Albuterol Inhaler [Ventolin Hfa Inhaler] 2 puff INHALATION RT-QID PRN 11/29/16 lisinopriL [Zestril] 2.5 mg PO DAILY 11/29/16 Controlled Substance Measures - Controlled Substance Measures Is patient prescribed a controlled substance at discharge?: No
== END ==
LOC: PNWHC3 10:14
PROVIDERS: ATTEND Specialist
DX: M47.812 Spondylosis without myelopathy or radiculopathy, cervical region (principal); F17.200 Nicotine dependence, unspecified, uncomplicated; E11.9 Type 2 diabetes mellitus without complications; I10 Essential (primary) hypertension; Z88.1 Allergy status to other antibiotic agents; F41.9 Anxiety disorder, unspecified; G89.29 Other chronic pain; M51.9 Unspecified thoracic, thoracolumbar and lumbosacral intervertebral disc disorder; M50.90 Cervical disc disorder, unspecified, unspecified cervical region; Z88.0 Allergy status to penicillin
CPT/HCPCS: 99211